=== PATIENT | male | born 1975 | race Two or more races ===

== ENCOUNTER 2021-08-03 21:13 | Emergency (ER) | payer OTHER, MEDICAID ==
[~2021-08-03] VITALS: Ht 172.7 cm; Wt 77.3 kg
[2021-08-03] MEDS ORDERED: LORAZEPAM 2MG/ML CPJ IV ONE (22:00)
[2021-08-03] MEDS ORDERED: HALOPERIDOL LACTATE 5MG/ML VIAL IM ONE (22:00)
[2021-08-03] MEDS ORDERED: OLANZAPINE 10 MG/VIAL IM ONE (22:00)
[2021-08-04 01:30] LABS: BASOPHILS % 0.9 % (0.0-2.0); EOSINOPHILS % 1.2 % (0.0-5.0); HEMATOCRIT. 44.7 % (42.0-52.0); HEMOGLOBIN. 15.3 g/dL (14.0-18.0); LYMPHOCYTES % 26.3 % (20.0-50.0); MEAN CORPUSCULAR HEMOGLOBIN 29.5 pg (28.0-32.0); MEAN CORPUSCULAR VOLUME 86.5 fL (80.0-94.0); MEAN PLATELET VOLUME 7.7 fl (7.4-10.4); MONOCYTES % 12.3 % (2.0-8.0); NEUTROPHILS % 59.3 % (40.0-76.0); PLATELET 377 x1000/uL (130-400); RED BLOOD CELL COUNT 5.17 mill/uL (4.7-6.1); RED CELL DISTRIBUTION WIDTH 14.5 % (11.6-14.6)
[2021-08-04 01:38] LABS: CHLORIDE 106 mEq/L (98-107)
[2021-08-04 01:42] LABS: ETHANOL BLOOD < 10 mg/dL
[2021-08-04] MEDS ORDERED: OLANZAPINE 10 MG/VIAL IM ONE (01:45)
[2021-08-04] MEDS ORDERED: LORAZEPAM 2MG/ML CPJ IV ONE (01:45)
[2021-08-04 03:12] LABS: CLARITY URINE CLEAR (CLEAR); COLOR URINE YELLOW (YELLOW); KETONES URINE TRACE (NEGATIVE); LEUKOCYTE ESTERASE URINE NEGATIVE (NEGATIVE); NITRITE URINE NEGATIVE (NEGATIVE); OCCULT BLOOD URINE NEGATIVE (NEGATIVE); PROTEIN URINE NEGATIVE (NEGATIVE)
[2021-08-04 03:22] LABS: *AMPHETAMINES SCREEN URINE PRESUMTIVE POSITIVE (NEGATIVE); *BARBITURATES SCREEN URINE NEGATIVE (NEGATIVE); *BENZODIAZEPINES SCREEN URINE NEGATIVE (NEGATIVE); *COCAINE SCREEN URINE PRESUMTIVE POSITIVE (NEGATIVE)
[2021-08-04 03:23] LABS: CANNABINOID URINE SCREEN PRESUMTIVE POSITIVE (NEGATIVE); METHADONE URINE SCREEN NEGATIVE (NEGATIVE); OPIATES URINE SCREEN NEGATIVE (NEGATIVE); PHENCYCLIDINE URINE SCREEN NEGATIVE (NEGATIVE)
[2021-08-05] MEDS ORDERED: QUETIAPINE FUMARATE 50MG TABLET PO SCH (21:00)
[2021-08-05 22:16] VITALS: BP 102/68
[2021-08-06] MEDS ORDERED: ARIPIPRAZOLE 5MG TABLET PO SCH (09:00)
[2021-08-06] MEDS ORDERED: BUPROPION HCL 150MG TABLET XL 24HR PO SCH (09:00)
== END 2021-08-05 23:44 ==
LOC: ER 21:37
DX: R45.851 Suicidal ideations (principal); F60.0 Paranoid personality disorder; R00.0 Tachycardia, unspecified; R45.1 Restlessness and agitation; F31.9 Bipolar disorder, unspecified; J44.9 Chronic obstructive pulmonary disease, unspecified; I10 Essential (primary) hypertension; F20.9 Schizophrenia, unspecified; Z88.2 Allergy status to sulfonamides
CPT/HCPCS: 36415; 87426; 93005; 96372; 96374; 96376; 99285; J2060; J3490